=== PATIENT | female | born 1990 | race Caucasian/White ===

== ENCOUNTER 2017-06-04 12:58 | Emergency (ER) | payer BC, OTHER ==
[~2017-06-04] VITALS: Ht 167.6 cm; Wt 78.4 kg
[~2017-06-04 12:58] MED LIST: MAGIC1 PO
[2017-06-04 13:06] VITALS: TEMP 36.7; Ht 167.6 cm; Wt 78.4 kg
[2017-06-04] MEDS ORDERED: BCPILLS PO (13:47)
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
[2017-06-04 14:45] VITALS: BP 133/87; PULSE 83; O2SAT 100
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
== END 2017-06-04 14:46 | disposition home or self-care (01) ==
LOC: C.EDB 13:00 → C.EDD 14:46
DX: S09.90XA Unspecified injury of head, initial encounter (principal); R51 Headache; W22.8XXA Striking against or struck by other objects, initial encounter; V43.52XA Car driver injured in collision with other type car in traffic accident, initial encounter